=== PATIENT | male | born 1970 | race Caucasian/White ===

== ENCOUNTER 2017-06-18 05:35 | Observation (INO) ==
[2017-06-18] MEDS ORDERED: ASPIRIN 325 MG TABLET PO STA (05:51)
[2017-06-18] MEDS ORDERED: NITROGLYCERIN 2% OINT 1 INCH/GM PACK TOP STA (05:51)
[2017-06-18] MEDS ORDERED: MORPHINE 2 MG/1 ML SYRINGE IV STA (05:51)
[2017-06-18] MEDS ORDERED: METOPROLOL TARTRATE 5 MG/5 ML VIAL IV STA ×2 (05:51→07:06)
[2017-06-18] MEDS ORDERED: ALBUTEROL/IPRATROPIUM 3 ML NEB RESP TX STA (05:51)
[2017-06-18] MEDS ORDERED: ONDANSETRON 4 MG/2 ML VIAL IV STA (05:51)
[2017-06-18] MEDS ORDERED: FUROSEMIDE 40 MG/4 ML VIAL IV STA (05:51)
[2017-06-18] MEDS ORDERED: methylPREDNISolone SOD SUC 125 MG/2 ML VIAL IV STA (05:51)
--- NOTE | 2017-06-18 05:55 | Emergency Department Note ---
Arrival - Arrival Chief Complaint: Chest Pain Stated Complaint: heart attack ED Nursing Triage Note: C/O Chest pain/shortness of breath. Onset 3 weeks ago and worsened last night. Reports that he has taken 4 SL nitro since 2200 lastnight. Pt reports that he has had 2 MIs and CABG, was seeing Dr. Nunes until 2 years ago and now has an appointment with Dr. Jauregui whom he has not seen Mode of Arrival: Ambulatory Time Seen by Provider: 06/18/17 05:51 - History of Present Illness HPI Narrative: 47-year-old white male comes into the emergency room complaining of chest pain in center of his chest radiate down to his right arm. Patient states the pain started 3 weeks ago off and on worse with exertion somewhat better with rest. Patient gets short of breath breaks out in cold sweats no nausea vomiting though. Patient has a history of a open heart surgery several years ago Dr. Young stent placement. Patient admits she still smokes cigarettes. Patient states the pain became intolerable this morning has not been the bed at decided come the emergency room to have this checked out. Allergies/Adverse Reactions: Allergies Allergy/AdvReac Type Severity Reaction Status Date / Time No Known Allergies Allergy Unverified 08/02/15 14:18 Home Medications: Home Medications Medication Instructions Recorded Confirmed Type Albuterol Inhaler [Proventil 2 puff INH Q6H PRN 06/18/17 06/18/17 History Inhaler] Albuterol Sulfate [Albuterol Neb] 1.25 mg RESP TX Q6HR 06/18/17 06/18/17 History Carvedilol [Coreg] 6.25 mg PO BID 06/18/17 06/18/17 History Nitroglycerin Sl Tab [Nitrostat] 0.4 mg SL Q5M PRN 06/18/17 06/18/17 History Rosuvastatin Calcium [Crestor] 40 mg PO DAILY 06/18/17 06/18/17 History traMADol TAB [Ultram] 50 mg PO BID 06/18/17 06/18/17 History Review of System - Review of System 12 point system: reviewed and no additional remarkable complaints except as stated - Review of System Constitutional: Present: weakness Cardiovascular: Present: chest pain, dyspnea on exertion Musculoskeletal: Present: arm pain Medical,Surgical,& Family Hx - Medical History Cardio: History of: Hypertension, NM (x2) Endocrine: History of: Dyslipidemia Respiratory: History of: Asthma, COPD - Surgical History Cardiac Surgeries: Sugical HX of: Femoral-Popliteal Bypass Graft - Social History Smoking Status: Current every day smoker Frequency of Alcohol Use: None Type of Drug Use: None Exam Vital Signs: Vital Signs Temperature 98.2 F 06/18/17 16:18 Pulse Rate 82 06/18/17 16:18 Respiratory Rate 18 06/18/17 16:18 Blood Pressure 116/59 06/18/17 16:18 O2 Sat by Pulse Oximetry 91 L 06/18/17 16:18 - General Exam limited due to: level of distress (Mild distress) General appearance: alert - Head Head exam: Present: atraumatic, normocephalic, normal inspection - Eye Eye exam: Present: normal appearance, PERRL, EOMI - ENT ENT exam: Present: normal exam, normal oropharynx, mucous membranes moist - Neck Neck exam: Present: normal inspection, full ROM, trachea midline - Chest Chest inspection: Present: normal inspection, symmetric chest wall rise, other ( Scar in his chest from open heart surgery) - Respiratory Respiratory exam: Present: rales (Bibasilar faint), rhonchi, wheezes - Cardiovascular Cardiovascular exam: Present: regular rate, normal rhythm, normal heart sounds - Abdominal Exam Abdominal exam: Present: soft, normal bowel sounds - Extremities Exam Extremities exam: Present: normal inspection, full ROM, normal capillary refill - Back Exam Back exam: Present: normal inspection, full ROM - Neurological Exam Neurological exam: Present: alert, oriented X3, CN II-XII intact, normal gait - Psychiatric Psychiatric exam: Present: normal affect, normal mood - Skin Skin exam: Present: warm, dry, intact, normal color Course - Consultations Consultation #1: Signed out to Dr. Lebron ER doctor assuming care of this patient all labs and x-rays are still pending Time: 06:00 Results - Labs CBC & BMP: 06/18/17 05:50 06/18/17 05:50 Labs: EKG compared to one done in 2014 shows a changes. Patient has flipped T waves one lead of minimal ST elevation in aVR possible ST elevation in V1 V2 but no acute ST elevation criteria for Foreign Agent Disposition Clinical Impression: Exertional dyspnea, Chest pain, Unstable angina pectoris, Uncontrolled hypertension Case discussed with: patient, patient's family Disposition: Still a Patient Condition: Stable
[2017-06-18] MEDS ORDERED: FUROSEMIDE 40 MG/4 ML VIAL ONE (06:07)
[2017-06-18] MEDS ORDERED: ONDANSETRON 4 MG/2 ML VIAL ONE (06:07)
[2017-06-18] MEDS ORDERED: NITROGLYCERIN 2% OINT 1 INCH/GM PACK TOP ONE ×2 (06:07→06:43)
[2017-06-18] MEDS ORDERED: ASPIRIN 325 MG TABLET ONE (06:08)
[2017-06-18] MEDS ORDERED: MORPHINE 2 MG/1 ML SYRINGE ONE (06:08)
[2017-06-18] MEDS ORDERED: METOPROLOL TARTRATE 5 MG/5 ML VIAL IV ONE ×2 (06:08→07:08)
[2017-06-18] MEDS ORDERED: methylPREDNISolone SOD SUC 125 MG/2 ML VIAL ONE (06:08)
[2017-06-18 06:12] LABS: Basophils % 0.4 % (0.0-0.8); Eosinophils # 0.2 10*3/uL (0.0-0.87); Eosinophils % 2.5 % (0.00-10.9); Hematocrit 42.7 VOL% (42.0-52.0); Hemoglobin 14.5 GM/DL (14.0-18.0); Immature Granulocytes % 0.2 %; Immature Granulocytes Absolute 0.02 #; Lymphocytes # 3.8 10*3/uL (1.4-4.0); Lymphocytes % 40.2 % (21.2-54.2); Mean Corpuscular Hemoglobin 31 PG (27-34); Mean Corpuscular Volume 89.9 FL (87-102); Mean Platelet Volume 10.4 FL (9.6-12.0); Monocytes # 0.8 10*3/uL (0.11-0.8); Monocytes % 8.4 % (1.7-12.7); Neutrophils # 4.5 10*3/uL (1.4-7.4); Neutrophils % 48.3 % (38.7-73.9); Platelet Count 299 T/CUMM (130-400); Red Blood Count 4.75 MC/CUMM (3.8-5.5); Red Cell Distribution Width 12.3 % (9.3-17.3); White Blood Count 9.4 T/CUMM (4-12)
[2017-06-18 06:29] LABS: INR 0.9; PT Patient Result 9.9 SECS
[2017-06-18 06:45] LABS: Alanine Aminotransferase 17 U/L (16-61); Albumin 3.3 G/DL (3.4-5.0); Alkaline Phosphatase 117 U/L (45-117); Aspartate Amino Transferase 12 U/L (0-37); Bilirubin,Total < 0.39 MG/DL (0.2-1.0); Blood Urea Nitrogen 14 MG/DL (7-18); Calcium 8.3 MG/DL (8.5-10.1); Glucose 105 MG/DL (74-106); Magnesium 2.2 MG/DL (1.8-2.4); Osmolality,Calculated 281.3 MOS/KG (273-304); Potassium 3.8 MMOL/L (3.5-5.1); Sodium 141 MMOL/L (136-145)
[2017-06-18] MEDS ORDERED: MAGNESIUM SULF RIDER 4 GM in PREMIX 1 EACH IV PRN (06:52)
[2017-06-18] MEDS ORDERED: MAGNESIUM SULF RIDER 2 GM in PREMIX 1 EACH IV PRN ×2 (06:52→10:21)
[2017-06-18] MEDS ORDERED: ENOXAPARIN 80 MG/0.8 ML SYRINGE SUBCUT STA (07:06)
[2017-06-18] MEDS ORDERED: ENOXAPARIN 80 MG/0.8 ML SYRINGE SUBCUT ONE (07:08)
--- NOTE | 2017-06-18 07:56 | XRay Report ---
Exam: XR chest 1V portable Date: 06/18/2017 5:51 AM Indication: Chest pain Comparison: 12/06/2016 Technical: AP Findings: Cardiomegaly is present with previous sternotomy. ASVD is present. No obvious pneumothorax. Low volume left effusion is present. Mediastinum is intact. Minimal atelectatic change left upper chest without consolidations present Impression: 1. Cardiomegaly with mild cardiac decompensation suspected with low volume effusion and atelectatic change present left lung. PROCEDURE INTERPRETED AT [facility] DEPARTMENT OF RADIOLOGY Final Report Signed by: Dr. Junior Peterson
[2017-06-18] MEDS ORDERED: diphenhydrAMINE CAP 25 MG CAPSULE PO ONE (10:21)
[2017-06-18] MEDS ORDERED: POTASSIUM CHLORIDE RIDER 10 MEQ in PREMIX 1 EACH IV PRN (10:21)
[2017-06-18] MEDS ORDERED: DIAZEPAM 5 MG TABLET PO ONE (10:21)
[2017-06-18] MEDS ORDERED: ALBUTEROL 2.5 MG/3 ML NEB RESP TX PRN (10:23)
[2017-06-18] MEDS ORDERED: NITROGLYCERIN SL 0.4 MG TABLET SL PRN (10:23)
[2017-06-18] MEDS ORDERED: MORPHINE 2 MG/1 ML SYRINGE IV PRN (10:25)
[2017-06-18] MEDS ORDERED: ACETAMINOPHEN 500 MG TABLET PO PRN (10:26)
[2017-06-18] MEDS ORDERED: ZALEPLON 5 MG CAPSULE PO PRN (10:26)
[2017-06-18] MEDS ORDERED: ALUMINUM/MAGNES/SIMETH MAX STR 30 ML UDCUP PO PRN (10:26)
--- NOTE | 2017-06-18 10:27 | Cardiology History & Physical ---
Assessment and Plan - Time spent with patient Time spent with patient: Greater than 30 minutes Time spent discussing smoking cessation with patient: 3 to 10 minutes (1) Unstable angina pectoris Status: Acute Assessment and plan: This patient is having unstable angina symptomatology with trivial increased troponin but above 1 is previously been. His ECG shows changes consistent with ischemia. We will plan on carrying out cardiac catheterization as discussed above. Current Visit: Yes (2) COPD (chronic obstructive pulmonary disease) Status: Chronic Assessment and plan: This is a chronic issue secondary probably to his smoking history. Current Visit: Yes (3) Abdominal aortic aneurysm Status: Chronic Assessment and plan: Last measured branches were 3.7 cm. Clinically stable. Current Visit: Yes (4) Abnormal ECG Status: Acute Assessment and plan: This is somewhat chronic but has acute changes there is different than previous. Current Visit: Yes (5) Smoker Status: Chronic Assessment and plan: Continues to have significant smoking history. This needs to be changed as rehab will see him in this regard after his catheterization. Start nicotine patch. Current Visit: Yes (6) Exertional dyspnea Status: Chronic Assessment and plan: Prior related to COPD but this is not debilitating. This is probably beneficial to stop smoking. This may be also related to his coronary disease. Current Visit: Yes (7) Uncontrolled hypertension Status: Chronic Assessment and plan: Blood pressure too elevated may be associated with his chest pain. Certainly may be exacerbating his chest pain. Current Visit: Yes (8) Dyslipidemia Status: Acute Assessment and plan: We will continue his present statin drug and check his lipid profile. Current Visit: Yes History of Present Illness Chief complaint: Chest pain History of present illness: Mr. Frias is a 47 year old male who is present in the emergency room now with a 3-4 week history of having chest pain is been intermittent especially with exertion. With this to get more short of breath and feel weak. This now has progressed to where is more frequent and exacerbated by lower levels of activity. The patient is now having some chest pain at rest. Presents emergency room for evaluation because of persistent pain that would recur immediately after taking some nitroglycerin. It should be noted the similar question would seem to resolve the pain. His ECG reveals T-wave abnormalities that is diffuse especially in inferior lateral leads. This is a change from prior ECG. He does have left ventricular hypertrophy and intraventricular conduction delay that is minimal. The patient's admission troponin was 0.298 and decreased back down to 0.271. His BNP was 363. Patient had prior coronary bypass surgery with anterior microinfarction August 2008. His disease was not amenable to intervention at that time and underwent bypass surgery with COCHRAN to the LAD, SVG to circumflex artery SVG to RCA. His last seen by me on July 2015. Because the patient's anginal quality symptomatology and abnormal ECG which is progressive this patient needs to have cardiac catheterization for definitive diagnosis and possible intervention. I discussed cardiac catheterization with he and his family that is present and significant other. I discussed the case as well as the benefits and risk. I discussed cardiac catheterization and percutaneous coronary intervention with the patient and available family. I reviewed with them the indications for the procedure and the basis of how the procedure would be carried out. I also reviewed with them the risk of the procedure which include but not necessarily limited to access site bleeding, bruising, pain, swelling or vascular injury that may require emergency vascular surgery, blood transfusion, or thrombin injection. Also discussed the possibility of stroke, myocardial infarction, arrhythmia which may require electrocardioversion, and the possibility of dye reaction that would require medical therapy. Also discussed the possibility of coronary artery injury, ruptured, closure or perforation that may require emergency bypass surgery. We also discussed the possibility of from a major complication. They voice understanding and agree to proceed. We will plan on doing today. His medical history significant only for his coronary disease but also hypertension dyslipidemia and tobacco abuse. He has been told that he has COPD and emphysema as well as abdominal aortic aneurysm. He states his last measurement of his abdominal aortic aneurysm a few months ago was 3.7 cm. Home Medications Medication Instructions Recorded Confirmed Type Albuterol Inhaler [Proventil 2 puff INH Q6H PRN 06/18/17 06/18/17 History Inhaler] Albuterol Sulfate [Albuterol Neb] 1.25 mg RESP TX Q6HR 06/18/17 06/18/17 History Carvedilol [Coreg] 6.25 mg PO BID 06/18/17 06/18/17 History Nitroglycerin Sl Tab [Nitrostat] 0.4 mg SL Q5M PRN 06/18/17 06/18/17 History Rosuvastatin Calcium [Crestor] 40 mg PO DAILY 06/18/17 06/18/17 History traMADol TAB [Ultram] 50 mg PO BID 06/18/17 06/18/17 History Allergies Allergy/AdvReac Type Severity Reaction Status Date / Time No Known Allergies Allergy Unverified 08/02/15 14:18 Review of systems: Constitutional: Denies anorexia, chills, fatigue, fever, frequent falls, night sweats, weight gain, weight loss Eyes: Denies visual changes or loss of vision Ears: Denies decreased hearing, vertigo Nose, mouth and throat: Denies dysphagia, epistaxis, headaches, neck pain, tongue swelling, Neck: Denies thyromegaly or masses. No stiffness. Cardiovascular: as per HPI Respiratory: Denies cough, dyspnea, hemoptysis, dyspnea on exertion, wheezing, snoring Gastrointestinal: Denies abdominal pain, constipation, dyspepsia, dysphagia, hematemesis, hematochezia, melena, nausea, vomiting Genitourinary: Denies dysuria, hematuria, nocturia Musculoskeletal: Denies arthralgias, joint swelling, muscle weakness, myalgias Neurological: denies abnormal gait, abnormal speech, confusion, convulsions, frequent falls, headaches, memory loss, syncope Psychiatric: Denies anxiety, confusion, depression Endocrine: Denies cold intolerance, fatigue, heat intolerance Hematologic/Lymphatic: Denies easy bleeding, easy bruising Dermatologic: Denies Rash, itching, shingles Medical,Surgical,& Family Hx - Medical History Cardio: History of: Aneurysm (AAA 3.7cm), Hypertension, SD (x2) Endocrine: History of: Dyslipidemia Respiratory: History of: COPD No history of: Asthma - Surgical History Cardiac Surgeries: Sugical HX of: Femoral-Popliteal Bypass Graft, Cardiac Catheterization, Cardiac Surgery (CABG 2007) - Social History Smoking Status: Current every day smoker (Smokes up to a pack of cigarettes daily.) Have you smoked in the last 12 months: Yes Time spent discussing smoking cessation with patient: 3 to 10 minutes Frequency of Alcohol Use: None Type of Drug Use: None Marital Status: Life Partner Lives With:: Significant Other Functional capacity: independent ambulation Cardiology Physical Exam - Constitutional Vitals: Vital Signs Temp Pulse Resp BP Pulse Ox 99.4 F 79 18 164/111 99 06/18/17 08:28 06/18/17 08:28 06/18/17 08:28 06/18/17 08:28 06/18/17 08:28 Intake and Output 0906/18/17 06/18/17 23:59 07:59 15:59 Other: Weight 74.843 kg 102.058 kg Patient Weight 06/18/17 23:59 Weight 102.058 kg Exam: General appearance: normal weight, no acute distress Head exam: normal inspection, atraumatic Eye exam: Pupils are equal and reactive. EOMI. There is no trauma. Ear exam: Anatomically normal. Normal auditory acuity to conversation. Oral exam: No significant oral lesions. Neck exam: normal inspection no JVD. No carotid bruit. Trachea is in midline. Respiratory exam: clear to auscultation bilaterally posteriorly and anteriorly with good air movement. No rales, rhonchi or wheezes. Cardiovascular exam: regular rate and rhythm, no murmur or gallop or rub. No precordial lift. No bruits over the major arteries. Chest wall/torso: Anatomically normal. No tenderness, deformity. Midline sternotomy scar from prior CABG. Peripheral Pulses: 2+ throughout. GI/Abdominal exam: normal bowel sounds, soft and nontender, no abdominal bruits or pulsatile masses. Musculoskeletal/Extremities exam: normal inspection without edema or cyanosis. No deformities or trauma. Neurological exam: alert, oriented X3. There is no gross neurologic deficits. Psychiatric exam: normal affect, normal mood. Cognitive function is grossly intact. Skin exam: normal color, warm. No rashes or other skin lesions. Result/EKG - Labs CBC & BMP: 06/18/17 05:50 06/18/17 05:50 Lab Results: I have reviewed the past 24 hour labs Labs: Laboratory Results - last 24 hr 06/18/17 06/18/17 06/18/17 05:50 05:50 05:50 WBC RBC Hgb Hct MCV MCH MCHC RDW Plt Count MPV Neut % (Auto) Lymph % (Auto) Sabine % (Auto) Eos % (Auto) Baso % (Auto) Neut # (Auto) Lymph # (Auto) Sabine # (Auto) Eos # (Auto) Baso # (Auto) Immature Gran % Nucleated RBC % Immature Gran # Nucleated RBCs # Immature Plt Fraction INR 0.9 PT Patient/Control Mix 9.9 D-Dimer, Quantitative <= 0.5 Sodium 141 Potassium 3.8 Chloride 110 H Carbon Dioxide 25 Anion Gap 9.8 BUN 14 Creatinine 1.10 GFR Calculation 90 BUN/Creatinine Ratio 12.00 Glucose 105 Calculated Osmolality 281.3 Calcium 8.3 L Magnesium 2.2 Total Bilirubin < 0.39 AST 12 ALT 17 Alkaline Phosphatase 117 Troponin I B-Natriuretic Peptide 363 H Total Protein 7.0 Albumin 3.3 L Globulin 3.7 H Albumin/Globulin Ratio 0.8 L Lipase 218.0 06/18/17 06/18/17 06/18/17 05:50 05:50 08:36 WBC 9.4 RBC 4.75 Hgb 14.5 Hct 42.7 MCV 89.9 MCH 31 MCHC 34.0 RDW 12.3 Plt Count 299 MPV 10.4 Neut % (Auto) 48.3 Lymph % (Auto) 40.2 Sabine % (Auto) 8.4 Eos % (Auto) 2.5 Baso % (Auto) 0.4 Neut # (Auto) 4.5 Lymph # (Auto) 3.8 Sabine # (Auto) 0.8 Eos # (Auto) 0.2 Baso # (Auto) 0.0 Immature Gran % 0.2 Nucleated RBC % 0.0 Immature Gran # 0.02 Nucleated RBCs # 0.00 Immature Plt Fraction 0.0 INR PT Patient/Control Mix D-Dimer, Quantitative Sodium Potassium Chloride Carbon Dioxide Anion Gap BUN Creatinine GFR Calculation BUN/Creatinine Ratio Glucose Calculated Osmolality Calcium Magnesium Total Bilirubin AST ALT Alkaline Phosphatase Troponin I 0.298 H 0.271 H B-Natriuretic Peptide Total Protein Albumin Globulin Albumin/Globulin Ratio Lipase - Impressions Impressions: ECG with sinus rhythm and findings consistent left ventricular hypertrophy and possible ST tantamount secondary this. His T-wave changes though or recent onset and different than previous ECG within the past year. Certainly may indicate ischemia.
[2017-06-18] MEDS ORDERED: SODIUM CHLORIDE 0.9% 1,000 ML IV SCH ×2 (10:30→13:00)
[2017-06-18] MEDS ORDERED: MIDAZOLAM 2 MG/2 ML VIAL ONE ×3 (10:32→12:03)
[2017-06-18] MEDS ORDERED: fentaNYL 100 MCG/2 ML VIAL ONE ×2 (10:32→11:18)
[2017-06-18] MEDS ORDERED: LIDOCAINE 1% 20 ML VIAL ONE (10:32)
[2017-06-18] MEDS ORDERED: cloNIDine 0.1 MG TABLET PO PRN (10:35)
--- NOTE | 2017-06-18 10:43 | History and Physical Update ---
Sedation H&P Update - Dictation Physical: refer to H&P completed by admitting physician - Physical Exam Mental Status: alert and oriented Heart: regular rate and rhythm Lung: clear to auscultation Abdomen: within normal limits Vitals: within normal limits History and Physical Changes: None - Sedation Plan for Sedation: moderate Patient Consent: Procedure disscussed with patient and patinet has consented., Risks and benefits were discussed with patient,including infection,, bleeding, injury to surrounding structures, seizure, temporary nerve, Patient understands and accepts potential risks/benefits and agrees to, proceed. ASA Class: III Airway Assessment: Class III: Soft palate, base of uvula visible
[2017-06-18] MEDS ORDERED: TIROFIBAN 5,000 MCG/100 ML PREMIX IV ONE (11:39)
[2017-06-18] MEDS ORDERED: TIROFIBAN 5,000 MCG/100 ML PREMIX IV SCH (11:45)
[2017-06-18] MEDS ORDERED: TICAGRELOR 90 MG TABLET ONE (11:47)
[2017-06-18] MEDS ORDERED: diphenhydrAMINE 50 MG/1 ML VIAL ONE (12:03)
--- NOTE | 2017-06-18 12:39 | Operative Note ---
Date of procedure: 06/18/17 Procedure Preformed: Left heart catheterization with LV gram, coronary angiography, COCHRAN angiogram, assess vein graft angiogram 2; stent PTCA and stent placement in mid circumflex artery, PTCA and stent placement in RCA PL branch and distal RCA pre- PDA. Successful initial hemostasis. Surgeon / Physician: Saúl Nunes It Systems Manager: Chyna Llanos Post-op diagnosis: same (Successful intervention of the distal RCA and mid circumflex artery.) Findings: High-grade coronary artery disease multivessel. See full report for details. Specimens: none sent Estimated blood loss: minimal Condition: stable Anesthesia: local, conscious sedation Disposition: floor
[2017-06-18] MEDS ORDERED: HYDROmorphone 2 MG/1 ML VIAL ONE (12:53)
[2017-06-18] MEDS ORDERED: HYDROmorphone 2 MG/1 ML VIAL IV ONE (13:10)
[2017-06-18] MEDS: LOSARTAN 50 MG TABLET PO SCH (13:48)
[2017-06-18] MEDS: CARVEDILOL 12.5 MG TABLET PO SCH ×2 (13:48→20:24)
[2017-06-18] MEDS: NICOTINE 14 MG/24 HR PATCH TRANSDERM SCH (13:50)
[2017-06-18] MEDS: ALBUTEROL 1.25 MG/3 ML NEB RESP TX SCH ×2 (14:15→20:11)
[2017-06-18 14:43] LABS: Alanine Aminotransferase 18 U/L (16-61); Albumin 3.8 G/DL (3.4-5.0); Alkaline Phosphatase 122 U/L (45-117); Aspartate Amino Transferase 14 U/L (0-37); Bilirubin,Direct < 0.100 MG/DL (0.0-0.20); Bilirubin,Indirect 0.6 MG/DL (0.0-1.0); Total Protein 7.6 G/DL (6.4-8.3)
[2017-06-18] MEDS: traMADol 50 MG TABLET PO SCH (20:24)
[2017-06-18] MEDS ORDERED: CARVEDILOL 6.25 MG TABLET PO SCH (21:00)
[2017-06-18] MEDS ORDERED: ROSUVASTATIN 20 MG TABLET PO SCH (21:00)
[2017-06-19] MEDS: ALBUTEROL 1.25 MG/3 ML NEB RESP TX SCH ×3 (01:01→12:55)
[2017-06-19 06:27] LABS: Basophils % 0.2 % (0.0-0.8); Hematocrit 39.4 VOL% (42.0-52.0); Hemoglobin 13.4 GM/DL (14.0-18.0); Immature Granulocytes % 0.4 %; Immature Granulocytes Absolute 0.07 #; Lymphocytes # 1.8 10*3/uL (1.4-4.0); Lymphocytes % 9.1 % (21.2-54.2); Mean Corpuscular Hemoglobin 31 PG (27-34); Mean Corpuscular Volume 90.2 FL (87-102); Mean Platelet Volume 11.2 FL (9.6-12.0); Monocytes # 0.8 10*3/uL (0.11-0.8); Neutrophils # 17.2 10*3/uL (1.4-7.4); Neutrophils % 86.3 % (38.7-73.9); Platelet Count 316 T/CUMM (130-400); Red Blood Count 4.37 MC/CUMM (3.8-5.5); Red Cell Distribution Width 12.4 % (9.3-17.3); White Blood Count 19.9 T/CUMM (4-12)
[2017-06-19 06:59] LABS: Risk Ratio 4.45; VLDL CHOLESTEROL 40.2 MG/DL
[2017-06-19 07:03] LABS: Lymphocytes 8 % (20-55); Platelet Estimate Normal; Segmented Neutrophils 87 % (50-85); Total Cells Counted 100
[2017-06-19 07:04] LABS: Polychromasia Few
[2017-06-19 07:05] LABS: Blood Urea Nitrogen 23 MG/DL (7-18); Calcium 8.5 MG/DL (8.5-10.1); Glucose 152 MG/DL (74-106); Magnesium 1.9 MG/DL (1.8-2.4); Osmolality,Calculated 285.4 MOS/KG (273-304); Sodium 140 MMOL/L (136-145)
--- NOTE | 2017-06-19 07:14 | Order Completion Report ---
See report scanned to EMR
[2017-06-19 07:21] LABS: Troponin I Only 0.797 NG/ML (0.00-0.045)
[2017-06-19] MEDS: CARVEDILOL 12.5 MG TABLET PO SCH (08:35)
[2017-06-19] MEDS: traMADol 50 MG TABLET PO SCH (08:35)
[2017-06-19] MEDS: LOSARTAN 50 MG TABLET PO SCH (08:36)
[2017-06-19] MEDS ORDERED: PANTOPRAZOLE 40 MG TABLET PO SCH (09:00)
[2017-06-19] MEDS ORDERED: TICAGRELOR 90 MG TABLET PO SCH (09:00)
[2017-06-19] MEDS ORDERED: ASPIRIN EC 81 MG TABLET PO SCH (09:00)
[2017-06-19] MEDS ORDERED: ROSUVASTATIN 20 MG TABLET PO SCH (09:00)
[2017-06-19] MEDS: NICOTINE 14 MG/24 HR PATCH TRANSDERM SCH (09:48)
[2017-06-19] MEDS ORDERED: MAGNESIUM SULF RIDER 2 GM in PREMIX 1 EACH IV PRN (10:50)
[2017-06-19] MEDS ORDERED: MAGNESIUM SULF RIDER 4 GM in PREMIX 1 EACH IV PRN (10:50)
[2017-06-19 11:49] LABS: Free T4 (Free Thyroxine) 0.85 NG/DL (0.76-1.46); Thyroid Stimulating Hormone 0.163 uIU/ml (0.358-3.74)
--- NOTE | 2017-06-19 12:14 | Discharge Summary ---
<Brandy Garcia E - Last Filed: 06/19/17 12:00> Hospital Course - Hospital Course Hospital Course: PROPERTY ADJUSTER: DR. ARENAS PRIMARY CARE PROVIDER: DR. LORENZO Mr. Frias is a 47 year old male who is presented to the emergency room June 18, 2017 with intermittent chest pain. Troponin was minimally elevated but EKG revealed T-wave abnormalities in the inferolateral leads. He was taken to the cardiac catheterization lab where Dr. Arenas performed heart catheterization with the following noted: Required PCI to the distal RCA, PCI to mid circumflex. EF 35-40%. See cardiac catheterization report for additional information. He tolerated the procedure well without complication and was returned to telemetry unit in stable condition. Overnight, he has done well without chest pain, heaviness or tightness. He has been ambulating in the hallway all morning without complaints. WBC count did increase overnight to 19K however I suspect this is related to receiving IV steroids. He is afebrile. (Patient had prior coronary bypass surgery with anterior microinfarction August 2008. His disease was not amenable to intervention at that time and underwent bypass surgery with COCHRAN to the LAD, SVG to circumflex artery SVG to RCA.) Patient is being discharged home in stable condition. He sees Dr. Lorenzo [place], [place] for primary care needs. Will verify that Gets a copy of this record. Of note, patient had a 3.7 cm abdominal aortic aneurysm in the past and this is followed by Dr. Lorenzo. Patient be given a 2-3 week follow-up appoint with Dr. Arenas. At that visit the following will be obtained: BMP, magnesium, CBC, EKG. Patient may benefit from an outpatient echocardiogram and I will schedule this to be performed the week prior to seeing Dr. Arenas (reason: Cardiomyopathy). Greater than 5 minutes was spent today discussing the merits of tobacco cessation. I did spend 30 minutes today discussing post cath expectations with patient and his . I also discussed the natural progression of coronary artery disease in need for continued, relentless management of his severe CAD. I also discussed the importance of medication compliance. Patient did receive counseling from cardiac rehabilitation prior to discharge. Discharge medications include the following: Aspirin 81 mg orally daily Brilinta 90 mg orally twice daily. Patient is being given a prescription card at discharge Carvedilol 12.5 mg orally twice daily Losartan 50 mg orally daily Crestor 40 mg orally each evening Lasix 20 mg orally daily as needed for weight gain greater than 3 pounds overnight. Patient personally reviewed and examined today. Chart was reviewed and discussed this with Brandy Garcia NP. The patient is doing well post interventions had no further chest pain he feels better. Patient's right groin is stable. His exam is stable. Patient be discharged to follow-up in 2 weeks. I discussed with he and his family his risk factor modifications and care. Cardiac rehab would be an consulted. My concern is his risk factors especially smoking. We have discussed medications with the patient. Home today. - Time spent with patient Time with patient DS: Greater than 30 minutes Time spent discussing smoking cessation with patient: 3 to 10 minutes Diagnosis - Discharge Diagnosis (1) Non-STEMI (non-ST elevated myocardial infarction) Status: Acute (2) Hypertension Status: Chronic (3) COPD (chronic obstructive pulmonary disease) Status: Chronic (4) Smoker Status: Chronic (5) Dyslipidemia Status: Chronic Specialty Discharge - Follow Up or Referrals Follow up with: Saúl Arenas MD [Primary Care Provider] - 07/08/17 1:40 pm (July 01 at 9:40 AM - lab work, EKG, and echocardiogram at Dr. Arenas's office. July 08 at 1:40 PM - appointment with Dr. Arenas. 2-3 weeks. At that visit will need: EKG, BMP, Mg, CBC. One week prior to appointment will need echo RE: cardiomyopathy.) Discharge Plan - Discharge Data Disposition: Disch To Home/Self Care Condition at Discharge: Stable Discharge Diet: heart healthy Activity: other (Post cath expectations) Hygiene: other (Post cath expectations) Weight Bearing at Discharge: other (Post cath expectations) Driving: other (Post cath expectations) Contact your physician if you experience:: fever over 101, Difficulty voiding, Redness or swelling, Nausea/Vomiting, Shortness of breath, Bleeding, pain uncontrolled by pain medications - Discharge Medications New Aspirin EC Tab 81 mg PO DAILY #30 tablet Carvedilol [Coreg] 12.5 mg PO BID #60 tablet Furosemide Tab [Lasix Tab] 20 mg PO PRN PRN #30 tablet PRN Reason: weight gain Ticagrelor [Brilinta] 90 mg PO BID #60 tablet Losartan [Cozaar] 50 mg PO DAILY #30 tablet Continue Albuterol Inhaler [Proventil Inhaler] 2 puff INH Q6H PRN PRN Reason: Shortness Of Breath/Wheezing Nitroglycerin Sl Tab [Nitrostat] 0.4 mg SL Q5M PRN PRN Reason: Chest Pain Albuterol Sulfate [Albuterol Neb] 1.25 mg RESP TX Q6HR traMADol TAB [Ultram] 50 mg PO BID Rosuvastatin Calcium [Crestor] 40 mg PO DAILY Discontinued Carvedilol [Coreg] 6.25 mg PO BID - Follow Up or Referral Follow Up: Saúl Arenas MD [Primary Care Provider] - 07/08/17 1:40 pm (July 01 at 9:40 AM - lab work, EKG, and echocardiogram at Dr. Arenas's office. July 08 at 1:40 PM - appointment with Dr. Arenas. 2-3 weeks. At that visit will need: EKG, BMP, Mg, CBC. One week prior to appointment will need echo RE: cardiomyopathy.) - Forms/Instructions Instructions: Left Heart Catheterization (DC), How to Stop Smoking (GEN), Heart Healthy Diet (DC), Cigarette Smoking and Your Health (GEN), Coronary Intravascular Stent Placement, Manager Of Program (GEN) Additional Discharge Instructions: Please have patient follow-up with Dr. Lorenzo , primary care provider, for continued following of his history of abdominal aortic aneurysm. Please ask medical records to [address] Lorenzo in [place], [place] a copy of these records and to add him to the options for cc at discharge. Also, please give patient Brilinta prescription card at discharge. Dr. Arenas would like to see patient prior to discharge. Dr. Arenas is rounding now. Exam - Constitutional Vitals: Period Temp Pulse Resp BP Sys/Hart Pulse Ox Last 24 Hr 97.6 F-98.8 F 48-102 18-20 116-150/59-85 91-100 Exam: General: [Appears well with no apparent distress.] [Pleasant and cooperative. ] [Appears comfortable.] HEENT: [PERRL, normocephalic, atraumatic. Mucous membranes moist. No jaundice noted. Conjunctiva moist and clear, sclerae anicteric] Neck: No JVD/HJR, no thyromegaly or lymphadenopathy noted. No carotid bruit appreciated Cardiac: [Regular rate and rhythm.] [No murmur, rub or gallop.] Lungs: [Clear to auscultation without accessory muscle use to assist the respiratory pattern.] Not requiring oxygen Abdomen: Soft, bowel sounds normoactive. Nontender and nondistended. No abdominal bruit or thrill noted. No masses noted. Musculoskeletal: No fluid collection. Decreased range of motion is noted. Extremities: Right groin soft, free of hematoma or bruit. No clubbing, cyanosis noted. [ No edema noted.] Upper extremity pulses 2+. Lower extremity pulses 2+. Capillary refill less than 3 seconds. Skin: No unusual lesions or rashes. No skin breakdown appreciated. Neuro: Awake, alert and oriented 3. Moves all extremities well without hemiparesis or paralysis. No essential tremor is appreciated. Discharge Results Labs on day of discharge: Labs from last 24 hours 06/19/17 06/19/17 06/19/17 04:16 04:16 04:16 WBC 19.9 H D RBC 4.37 Hgb 13.4 L Hct 39.4 L MCV 90.2 MCH 31 MCHC 34.0 RDW 12.4 Plt Count 316 MPV 11.2 Neut % (Auto) 86.3 H Lymph % (Auto) 9.1 L Hancock % (Auto) 4.0 Eos % (Auto) 0.0 Baso % (Auto) 0.2 Neut # (Auto) 17.2 H Lymph # (Auto) 1.8 Hancock # (Auto) 0.8 Eos # (Auto) 0.0 Baso # (Auto) 0.0 Total Counted 100 Immature Gran % 0.4 Nucleated RBC % 0.0 Immature Gran # 0.07 Segmented Neutrophils 87 H Lymphocytes 8 L Monocytes 5 Nucleated RBCs # 0.00 Platelet Estimate Normal Immature Plt Fraction 0.0 Polychromasia Few Sodium 140 Potassium 4.0 Chloride 107 Carbon Dioxide 23 Anion Gap 14.0 BUN 23 H Creatinine 1.30 GFR Calculation 86 BUN/Creatinine Ratio 17.00 Glucose 152 H Calculated Osmolality 285.4 Calcium 8.5 Magnesium 1.9 Total Creatine Kinase 57 CK-MB (CK-2) 4.8 H Troponin I 0.797 H D Triglycerides 201 H Cholesterol 196 LDL Cholesterol 132.0 VLDL Cholesterol 40.2 HDL Cholesterol 44 Heart Disease Risk Ratio 4.45 Free T4 TSH 3rd Generation 06/19/17 04:14 WBC RBC Hgb Hct MCV MCH MCHC RDW Plt Count MPV Neut % (Auto) Lymph % (Auto) Hancock % (Auto) Eos % (Auto) Baso % (Auto) Neut # (Auto) Lymph # (Auto) Hancock # (Auto) Eos # (Auto) Baso # (Auto) Total Counted Immature Gran % Nucleated RBC % Immature Gran # Segmented Neutrophils Lymphocytes Monocytes Nucleated RBCs # Platelet Estimate Immature Plt Fraction Polychromasia Sodium Potassium Chloride Carbon Dioxide Anion Gap BUN Creatinine GFR Calculation BUN/Creatinine Ratio Glucose Calculated Osmolality Calcium Magnesium Total Creatine Kinase CK-MB (CK-2) Troponin I Triglycerides Cholesterol LDL Cholesterol VLDL Cholesterol HDL Cholesterol Heart Disease Risk Ratio Free T4 0.85 TSH 3rd Generation 0.163 L - Imaging and Cardiology Cardiology Procedure: report reviewed by me Procedure: Chest x-ray: report reviewed by me DS: Provider Date of admission: 06/18/17 06:50 Primary care physician: Saúl Arenas MD Attending physician on admission: Christophe Forrest MD Consults: 06/18/17 12:41 Consult to Cardiac Rehabilitation [CONS] Routine Reason for Cardiac Rehabilitation: Risk Factor Modification Other Smoking Cessation Literacy Consultant Consult Comment: Evaluate and recommend Discharging clinician: Brandy Garcia NP Expected date of discharge: 06/19/17 <Saúl Arenas - Last Filed: 06/19/17 14:54> Diagnosis - Discharge Diagnosis (1) Unstable angina pectoris Status: Acute (2) COPD (chronic obstructive pulmonary disease) Status: Chronic (3) Abdominal aortic aneurysm Status: Chronic (4) Abnormal ECG Status: Acute (5) Smoker Status: Chronic (6) Exertional dyspnea Status: Chronic (7) Uncontrolled hypertension Status: Chronic (8) Dyslipidemia Status: Chronic
[2017-06-19] MEDS ORDERED: FUROSEMIDE 20 MG TABLET PO PRN (12:15)
[2017-06-19 12:21] VITALS: BP 149/85
[2017-06-19] MEDS ORDERED: ATORVASTATIN 80 MG TABLET PO SCH (21:00)
--- NOTE | 2017-06-23 05:27 | Order Completion Report ---
See report scanned to EMR
--- NOTE | 2017-06-23 05:27 | Order Completion Report ---
See report scanned to EMR
== END 2017-06-19 13:50 | disposition home or self-care (01) ==
LOC: N.EDINP 05:35 → N.ED 05:35 → N.EDINP 08:21 → N.TELES 08:24
PROVIDERS: ADMIT Internal Medicine Cardiovascular Disease; ATTEND Internal Medicine Cardiovascular Disease

== ENCOUNTER 2019-03-02 15:50 | Observation (INO) ==
[2019-03-02 16:39] LABS: Basophils # 0.1 10*3/uL (0.0-0.2); Basophils % 0.6 % (0.0-0.8); Eosinophils # 0.2 10*3/uL (0.0-0.87); Eosinophils % 1.8 % (0.00-10.9); Hematocrit 48.6 VOL% (42.0-52.0); Hemoglobin 15.9 GM/DL (14.0-18.0); Immature Granulocytes % 0.6 %; Immature Granulocytes Absolute 0.05 #; Lymphocytes # 2.9 10*3/uL (1.4-4.0); Lymphocytes % 33.1 % (21.2-54.2); Mean Corpuscular HGB Conc 32.7 GM/DL (32-36); Mean Corpuscular Volume 91.4 FL (87-102); Mean Platelet Volume 9.8 FL (9.6-12.0); Monocytes % 7.9 % (1.7-12.7); Platelet Count 359 T/CUMM (130-400); Red Blood Count 5.32 MC/CUMM (3.8-5.5); Red Cell Distribution Width 12.5 % (9.3-17.3); White Blood Count 8.7 T/CUMM (4-12)
[2019-03-02 16:46] LABS: INR 0.9; PT Patient Result 9.7 SECS
[2019-03-02] MEDS ORDERED: ENOXAPARIN 100 MG/ML SYRINGE SUBCUT STA (16:52)
[2019-03-02] MEDS ORDERED: ASPIRIN 325 MG TABLET PO STA (16:52)
[2019-03-02 17:01] LABS: Alanine Aminotransferase 20 U/L (16-61); Albumin 3.5 G/DL (3.4-5.0); Alkaline Phosphatase 121 U/L (45-117); Aspartate Amino Transferase 14 U/L (0-37); Blood Urea Nitrogen 14 MG/DL (7-18); Calcium 8.9 MG/DL (8.5-10.1); Glucose 106 MG/DL (74-106); Total Protein 7.9 G/DL (6.4-8.3); Troponin I 0.023 NG/ML (0.00-0.045)
[2019-03-02] MEDS ORDERED: amLODIPine 5 MG TABLET PO STA (17:51)
[2019-03-02] MEDS ORDERED: NITROGLYCERIN 2% OINT 1 INCH/GM PACK TOP STA (17:51)
[2019-03-02] MEDS ORDERED: MORPHINE 4 MG/1 ML VIAL IV PRN (18:45)
[2019-03-02] MEDS ORDERED: ONDANSETRON 4 MG/2 ML VIAL IV PRN (18:45)
[2019-03-02] MEDS ORDERED: ACETAMINOPHEN 325 MG TABLET PO PRN (18:45)
[2019-03-02] MEDS ORDERED: hydrALAZINE 20 MG/1 ML VIAL IV PRN (18:51)
[2019-03-02] MEDS ORDERED: ALBUTEROL 1.25 MG/3 ML NEB RESP TX PRN (18:56)
[2019-03-02] MEDS: traMADol 50 MG TABLET PO PRN (22:42)
[2019-03-02] MEDS: TICAGRELOR 90 MG TABLET PO SCH (22:42)
[2019-03-02] MEDS: CARVEDILOL 25 MG TABLET PO SCH (22:42)
[2019-03-03] MEDS: NITROGLYCERIN 2% OINT 1 INCH/GM PACK TOP SCH ×3 (02:25→12:31)
[2019-03-03 04:48] LABS: Basophils # 0.1 10*3/uL (0.0-0.2); Basophils % 0.6 % (0.0-0.8); Eosinophils # 0.3 10*3/uL (0.0-0.87); Eosinophils % 2.8 % (0.00-10.9); Hematocrit 46.1 VOL% (42.0-52.0); Hemoglobin 14.8 GM/DL (14.0-18.0); Immature Granulocytes % 0.7 %; Immature Granulocytes Absolute 0.07 #; Lymphocytes # 4.6 10*3/uL (1.4-4.0); Mean Corpuscular HGB Conc 32.1 GM/DL (32-36); Mean Corpuscular Volume 92.4 FL (87-102); Mean Platelet Volume 10.1 FL (9.6-12.0); Monocytes % 9.1 % (1.7-12.7); Neutrophils % 42.8 % (38.7-73.9); Platelet Count 330 T/CUMM (130-400); Red Blood Count 4.99 MC/CUMM (3.8-5.5); Red Cell Distribution Width 12.4 % (9.3-17.3); White Blood Count 10.4 T/CUMM (4-12)
[2019-03-03 05:32] LABS: Calcium 8.9 MG/DL (8.5-10.1); Osmolality,Calculated 277.5 MOS/KG (273-304); Risk Ratio 8.82; Thyroid Stimulating Hormone 1.84 uIU/ml (0.358-3.74); VLDL CHOLESTEROL 87.2 MG/DL
[2019-03-03] MEDS: PANTOPRAZOLE 40 MG TABLET PO SCH (09:06)
[2019-03-03] MEDS: ROSUVASTATIN 20 MG TABLET PO SCH (09:06)
[2019-03-03] MEDS: CARVEDILOL 25 MG TABLET PO SCH ×2 (09:06→21:23)
[2019-03-03] MEDS: LISINOPRIL 20 MG TABLET PO SCH (09:06)
[2019-03-03] MEDS: ASPIRIN EC 81 MG TABLET PO SCH (09:06)
[2019-03-03] MEDS: TICAGRELOR 90 MG TABLET PO SCH ×2 (09:07→21:23)
[2019-03-03] MEDS: NICOTINE 7 MG/24 HR PATCH TRANSDERM SCH (09:10)
[2019-03-03] MEDS ORDERED: POTASSIUM CHLORIDE RIDER 10 MEQ in PREMIX 1 EACH IV PRN (14:58)
[2019-03-03] MEDS ORDERED: MAGNESIUM SULF RIDER 2 GM in PREMIX 1 EACH IV PRN (14:58)
[2019-03-03] MEDS: ALBUTEROL 2.5 MG/3 ML NEB RESP TX PRN (17:12)
[2019-03-03] MEDS: CLORAZEPATE 3.75 MG TABLET PO PRN (18:05)
[2019-03-03] MEDS: ENOXAPARIN 40 MG/0.4 ML SYRINGE SUBCUT SCH (18:05)
[2019-03-04] MEDS: CLORAZEPATE 3.75 MG TABLET PO PRN ×3 (00:39→22:00)
[2019-03-04] MEDS: traMADol 50 MG TABLET PO PRN ×3 (01:20→22:00)
[2019-03-04 04:42] LABS: Basophils # 0.1 10*3/uL (0.0-0.2); Basophils % 0.6 % (0.0-0.8); Eosinophils # 0.3 10*3/uL (0.0-0.87); Eosinophils % 3.1 % (0.00-10.9); Hematocrit 45.1 VOL% (42.0-52.0); Hemoglobin 14.6 GM/DL (14.0-18.0); Immature Granulocytes % 0.5 %; Immature Granulocytes Absolute 0.04 #; Lymphocytes # 3.8 10*3/uL (1.4-4.0); Lymphocytes % 45.5 % (21.2-54.2); Mean Corpuscular HGB Conc 32.4 GM/DL (32-36); Mean Platelet Volume 10.3 FL (9.6-12.0); Neutrophils % 43.3 % (38.7-73.9); Platelet Count 313 T/CUMM (130-400); Red Blood Count 4.85 MC/CUMM (3.8-5.5); Red Cell Distribution Width 12.5 % (9.3-17.3); White Blood Count 8.4 T/CUMM (4-12)
[2019-03-04 05:12] LABS: Calcium 8.7 MG/DL (8.5-10.1); Osmolality,Calculated 285.3 MOS/KG (273-304)
[2019-03-04] MEDS: NICOTINE 7 MG/24 HR PATCH TRANSDERM SCH (11:48)
[2019-03-04] MEDS ORDERED: DIAZEPAM 5 MG TABLET PO ONE (12:00)
[2019-03-04] MEDS ORDERED: diphenhydrAMINE CAP 25 MG CAPSULE PO ONE (12:00)
[2019-03-04] MEDS: ALBUTEROL 2.5 MG/3 ML NEB RESP TX PRN (12:15)
[2019-03-04] MEDS: ENOXAPARIN 40 MG/0.4 ML SYRINGE SUBCUT SCH ×2 (12:35→18:23)
[2019-03-04] MEDS: ASPIRIN EC 81 MG TABLET PO SCH (12:36)
[2019-03-04] MEDS: LISINOPRIL 20 MG TABLET PO SCH (12:36)
[2019-03-04] MEDS: ROSUVASTATIN 20 MG TABLET PO SCH (12:36)
[2019-03-04] MEDS: TICAGRELOR 90 MG TABLET PO SCH ×2 (12:37→22:01)
[2019-03-04] MEDS: CARVEDILOL 25 MG TABLET PO SCH (12:37)
[2019-03-04] MEDS: PANTOPRAZOLE 40 MG TABLET PO SCH (12:37)
[2019-03-04] MEDS ORDERED: fentaNYL 100 MCG/2 ML VIAL ONE (13:15)
[2019-03-04] MEDS ORDERED: MIDAZOLAM 2 MG/2 ML VIAL ONE (13:15)
[2019-03-04] MEDS ORDERED: SODIUM CHLORIDE 0.9% 1,000 ML IV SCH (14:30)
[2019-03-05] MEDS: CARVEDILOL 25 MG TABLET PO SCH ×2 (01:39→09:17)
[2019-03-05 06:23] LABS: Basophils % 0.5 % (0.0-0.8); Eosinophils # 0.3 10*3/uL (0.0-0.87); Eosinophils % 3.2 % (0.00-10.9); Hematocrit 42.6 VOL% (42.0-52.0); Hemoglobin 13.4 GM/DL (14.0-18.0); Immature Granulocytes % 0.5 %; Immature Granulocytes Absolute 0.04 #; Lymphocytes # 2.8 10*3/uL (1.4-4.0); Lymphocytes % 33.9 % (21.2-54.2); Mean Corpuscular HGB Conc 31.5 GM/DL (32-36); Mean Corpuscular Volume 94.7 FL (87-102); Mean Platelet Volume 10.3 FL (9.6-12.0); Monocytes % 7.4 % (1.7-12.7); Neutrophils % 54.5 % (38.7-73.9); Platelet Count 295 T/CUMM (130-400); Red Cell Distribution Width 12.6 % (9.3-17.3); White Blood Count 8.3 T/CUMM (4-12)
[2019-03-05 06:50] LABS: Calcium 8.3 MG/DL (8.5-10.1); Osmolality,Calculated 282.5 MOS/KG (273-304)
[2019-03-05 08:06] VITALS: BP 142/89
[2019-03-05] MEDS: ROSUVASTATIN 20 MG TABLET PO SCH (09:16)
[2019-03-05] MEDS: TICAGRELOR 90 MG TABLET PO SCH (09:17)
[2019-03-05] MEDS: PANTOPRAZOLE 40 MG TABLET PO SCH (09:17)
[2019-03-05] MEDS: ASPIRIN EC 81 MG TABLET PO SCH (09:17)
[2019-03-05] MEDS: LISINOPRIL 20 MG TABLET PO SCH (09:17)
[2019-03-05] MEDS: NICOTINE 7 MG/24 HR PATCH TRANSDERM SCH (09:17)
[2019-03-05] MEDS: traMADol 50 MG TABLET PO PRN (09:24)
== END 2019-03-05 11:35 | disposition home or self-care (01) ==
LOC: N.EDINP 15:50 → N.ED 15:50 → SUATTDRO 18:45 → N.TELES 20:08
PROVIDERS: ADMIT Internal Medicine; ATTEND Internal Medicine Interventional Cardiology

== ENCOUNTER 2019-05-24 20:39 | Inpatient (IN) ==
[2019-05-24 22:34] LABS: Basophils % 0.5 % (0.0-0.8); Eosinophils # 0.2 10*3/uL (0.0-0.87); Eosinophils % 2.8 % (0.00-10.9); Hematocrit 41.3 VOL% (42.0-52.0); Hemoglobin 13.6 GM/DL (14.0-18.0); Immature Granulocytes % 0.2 %; Immature Granulocytes Absolute 0.02 #; Lymphocytes # 2.3 10*3/uL (1.4-4.0); Lymphocytes % 28.3 % (21.2-54.2); Mean Corpuscular HGB Conc 32.9 GM/DL (32-36); Mean Platelet Volume 10.7 FL (9.6-12.0); Monocytes % 6.7 % (1.7-12.7); Neutrophils % 61.5 % (38.7-73.9); Platelet Count 299 T/CUMM (130-400); Red Blood Count 4.44 MC/CUMM (3.8-5.5); Red Cell Distribution Width 12.4 % (9.3-17.3); White Blood Count 8.1 T/CUMM (4-12)
[2019-05-24 22:52] LABS: Alanine Aminotransferase 15 U/L (16-61); Albumin 3.4 G/DL (3.4-5.0); Alkaline Phosphatase 101 U/L (45-117); Aspartate Amino Transferase 20 U/L (0-37); Bilirubin,Total < 0.39 MG/DL (0.2-1.0); Blood Urea Nitrogen 24 MG/DL (7-18); Calcium 9.1 MG/DL (8.5-10.1); Glucose 99 MG/DL (74-106); Osmolality,Calculated 286.1 MOS/KG (273-304); Total Protein 7.5 G/DL (6.4-8.3)
[2019-05-24] MEDS ORDERED: ENOXAPARIN 80 MG/0.8 ML SYRINGE SUBCUT STA (23:02)
[2019-05-24] MEDS ORDERED: ENOXAPARIN 100 MG/ML SYRINGE SUBCUT ONE (23:15)
[2019-05-24] MEDS ORDERED: CLOPIDOGREL 75 MG TABLET PO STA (23:16)
[2019-05-25] MEDS ORDERED: ACETAMINOPHEN 325 MG TABLET PO PRN (00:06)
[2019-05-25] MEDS ORDERED: ONDANSETRON 4 MG/2 ML VIAL IV PRN (00:06)
[2019-05-25] MEDS ORDERED: POTASSIUM CHLORIDE 20 MEQ TABLET PO PRN (00:06)
[2019-05-25] MEDS ORDERED: NITROGLYCERIN SL 0.4 MG TABLET SL PRN (00:06)
[2019-05-25] MEDS ORDERED: MAGNESIUM SULF RIDER 2 GM in PREMIX 1 EACH IV PRN ×2 (00:06→08:34)
[2019-05-25] MEDS ORDERED: NITROGLYCERIN 2% OINT 1 INCH/GM PACK TOP STA (04:00)
[2019-05-25 04:01] LABS: Basophils % 0.3 % (0.0-0.8); Eosinophils # 0.2 10*3/uL (0.0-0.87); Eosinophils % 3.3 % (0.00-10.9); Hematocrit 40.1 VOL% (42.0-52.0); Hemoglobin 13.5 GM/DL (14.0-18.0); Immature Granulocytes % 0.3 %; Immature Granulocytes Absolute 0.02 #; Lymphocytes # 3.5 10*3/uL (1.4-4.0); Lymphocytes % 47.1 % (21.2-54.2); Mean Corpuscular HGB Conc 33.7 GM/DL (32-36); Mean Corpuscular Volume 92.2 FL (87-102); Mean Platelet Volume 10.6 FL (9.6-12.0); Monocytes % 8.3 % (1.7-12.7); Neutrophils % 40.7 % (38.7-73.9); Platelet Count 277 T/CUMM (130-400); Red Blood Count 4.35 MC/CUMM (3.8-5.5); Red Cell Distribution Width 12.4 % (9.3-17.3); White Blood Count 7.4 T/CUMM (4-12)
[2019-05-25] MEDS ORDERED: NITROGLYCERIN 2% OINT 1 INCH/GM PACK TOP ONE (04:07)
[2019-05-25 04:22] LABS: Alanine Aminotransferase 18 U/L (16-61); Albumin 3.1 G/DL (3.4-5.0); Alkaline Phosphatase 100 U/L (45-117); Aspartate Amino Transferase 20 U/L (0-37); Bilirubin,Total < 0.39 MG/DL (0.2-1.0); Blood Urea Nitrogen 24 MG/DL (7-18); Calcium 8.5 MG/DL (8.5-10.1); Glucose 105 MG/DL (74-106); Osmolality,Calculated 284.3 MOS/KG (273-304)
[2019-05-25] MEDS ORDERED: NITROGLYCERIN 2% OINT 1 INCH/GM PACK TOP SCH (06:00)
[2019-05-25] MEDS ORDERED: POTASSIUM CHLORIDE RIDER 10 MEQ in PREMIX 1 EACH IV PRN (08:34)
[2019-05-25] MEDS ORDERED: diphenhydrAMINE CAP 25 MG CAPSULE PO ONE (08:34)
[2019-05-25] MEDS ORDERED: DIAZEPAM 5 MG TABLET PO ONE (08:34)
[2019-05-25] MEDS ORDERED: LIDOCAINE 1%/EPI INJ 20 ML VIAL ONE (08:43)
[2019-05-25] MEDS ORDERED: HEPARIN/NACL 0.9% 2 UNITS/ML 1,000 ML IV ONE (08:43)
[2019-05-25] MEDS: ASPIRIN EC 81 MG TABLET PO SCH (08:52)
[2019-05-25] MEDS: hydroCHLOROthiazide 25 MG TABLET PO SCH (08:52)
[2019-05-25] MEDS: ROSUVASTATIN 20 MG TABLET PO SCH (08:53)
[2019-05-25] MEDS: CARVEDILOL 25 MG TABLET PO SCH ×2 (08:53→21:33)
[2019-05-25] MEDS: PANTOPRAZOLE 40 MG TABLET PO SCH (08:53)
[2019-05-25] MEDS: LISINOPRIL 20 MG TABLET PO SCH (08:53)
[2019-05-25] MEDS: CLOPIDOGREL 75 MG TABLET PO SCH (08:53)
[2019-05-25] MEDS: SODIUM CHLORIDE 0.45% 1,000 ML IV SCH ×2 (08:58→17:23)
[2019-05-25] MEDS ORDERED: fentaNYL 100 MCG/2 ML VIAL ONE (09:08)
[2019-05-25] MEDS ORDERED: MIDAZOLAM 2 MG/2 ML VIAL ONE ×2 (09:08→09:38)
[2019-05-25] MEDS ORDERED: ENOXAPARIN 60 MG/0.6 ML SYRINGE ONE (09:28)
[2019-05-25] MEDS ORDERED: TIROFIBAN 5,000 MCG/100 ML PREMIX IV ONE (09:30)
[2019-05-25] MEDS ORDERED: TIROFIBAN 5,000 MCG/100 ML PREMIX IV SCH (09:41)
[2019-05-25] MEDS ORDERED: HYDROmorphone 2 MG/1 ML VIAL ONE (09:56)
[2019-05-25] MEDS ORDERED: CLOPIDOGREL 300 MG TABLET ONE (10:14)
[2019-05-25] MEDS: NITROGLYCERIN 2% OINT 1 INCH/GM PACK TOP SCH ×4 (11:09→23:01)
[2019-05-25] MEDS: ENOXAPARIN 100 MG/ML SYRINGE SUBCUT SCH ×3 (11:10→23:00)
[2019-05-25] MEDS ORDERED: diphenhydrAMINE CAP 25 MG CAPSULE PO PRN (13:30)
[2019-05-25] MEDS ORDERED: ALPRAZolam 0.25 MG TABLET PO PRN (13:30)
[2019-05-26 04:58] LABS: Basophils # 0.1 10*3/uL (0.0-0.2); Basophils % 0.9 % (0.0-0.8); Eosinophils # 0.2 10*3/uL (0.0-0.87); Eosinophils % 3.4 % (0.00-10.9); Hematocrit 41.2 VOL% (42.0-52.0); Hemoglobin 13.6 GM/DL (14.0-18.0); Immature Granulocytes % 0.6 %; Immature Granulocytes Absolute 0.04 #; Lymphocytes # 1.9 10*3/uL (1.4-4.0); Lymphocytes % 29.4 % (21.2-54.2); Mean Corpuscular Volume 92.8 FL (87-102); Mean Platelet Volume 11.1 FL (9.6-12.0); Monocytes % 9.8 % (1.7-12.7); Neutrophils % 55.9 % (38.7-73.9); Platelet Count 270 T/CUMM (130-400); Red Blood Count 4.44 MC/CUMM (3.8-5.5); Red Cell Distribution Width 12.3 % (9.3-17.3); White Blood Count 6.4 T/CUMM (4-12)
[2019-05-26] MEDS: NITROGLYCERIN 2% OINT 1 INCH/GM PACK TOP SCH (05:30)
[2019-05-26 05:36] LABS: Calcium 8.7 MG/DL (8.5-10.1); Osmolality,Calculated 283.4 MOS/KG (273-304)
[2019-05-26] MEDS: hydroCHLOROthiazide 25 MG TABLET PO SCH (09:08)
[2019-05-26] MEDS: PANTOPRAZOLE 40 MG TABLET PO SCH (09:08)
[2019-05-26] MEDS: CARVEDILOL 25 MG TABLET PO SCH (09:08)
[2019-05-26] MEDS: ROSUVASTATIN 20 MG TABLET PO SCH (09:09)
[2019-05-26] MEDS: ASPIRIN EC 81 MG TABLET PO SCH (09:09)
[2019-05-26] MEDS: LISINOPRIL 20 MG TABLET PO SCH (09:09)
[2019-05-26] MEDS: CLOPIDOGREL 75 MG TABLET PO SCH (09:10)
[2019-05-26 11:50] VITALS: BP 110/74
[2019-05-26] MEDS: ENOXAPARIN 100 MG/ML SYRINGE SUBCUT SCH (13:29)
== END 2019-05-26 14:42 | disposition home or self-care (01) | DRG 247 ==
LOC: EDBD → EDUNIT# → N.EDINP 20:39 → N.ED 20:39 → N.TELEN 05-25 04:07
PROVIDERS: ADMIT Internal Medicine; ATTEND Internal Medicine
PROC: CLCCHCL (ICD-10-PCS; 2019-05-25 10:15)

== ENCOUNTER 2020-05-12 18:08 | Observation (INO) ==
[2020-05-12] MEDS ORDERED: ASPIRIN 325 MG TABLET PO STA (18:42)
[2020-05-12 19:16] LABS: Alanine Aminotransferase 33 U/L (16-61); Albumin 3.3 G/DL (3.4-5.0); Alkaline Phosphatase 116 U/L (45-117); Aspartate Amino Transferase 19 U/L (0-37); Bilirubin,Total < 0.39 MG/DL (0.2-1.0); Blood Urea Nitrogen 16 MG/DL (7-18); Calcium 9.9 MG/DL (8.5-10.1); Estimated Glom Filtration Rate 115 ML/MIN; Glucose 97 MG/DL (74-106); Osmolality,Calculated 283.1 MOS/KG (273-304)
[2020-05-12] MEDS ORDERED: NITROGLYCERIN 2% OINT 1 INCH/GM PACK TOP STA (19:45)
[2020-05-12] MEDS ORDERED: MAGNESIUM SULF RIDER 2 GM in PREMIX 1 EACH IV PRN (19:46)
[2020-05-12] MEDS ORDERED: MAGNESIUM SULF RIDER 4 GM in PREMIX 1 EACH IV PRN (19:46)
[2020-05-12] MEDS ORDERED: NITROGLYCERIN SL 0.4 MG TABLET SL PRN (19:49)
[2020-05-12] MEDS ORDERED: ENOXAPARIN 100 MG/ML SYRINGE SUBCUT STA (19:51)
[2020-05-12] MEDS ORDERED: CLOPIDOGREL 75 MG TABLET PO STA (19:52)
[2020-05-12 20:10] LABS: Basophils % 0.7 % (0.0-0.8); Eosinophils # 0.2 10*3/uL (0.0-0.87); Eosinophils % 2.5 % (0.00-10.9); Hematocrit 45.6 VOL% (42.0-52.0); Immature Granulocytes % 0.5 %; Immature Granulocytes Absolute 0.03 #; Lymphocytes # 2.7 10*3/uL (1.4-4.0); Lymphocytes % 44.3 % (21.2-54.2); Mean Corpuscular HGB Conc 32.9 GM/DL (32-36); Mean Corpuscular Volume 93.6 FL (87-102); Mean Platelet Volume 11.3 FL (9.6-12.0); Monocytes % 11.6 % (1.7-12.7); Neutrophils % 40.4 % (38.7-73.9); Platelet Count 259 T/CUMM (130-400); Red Blood Count 4.87 MC/CUMM (3.8-5.5); Red Cell Distribution Width 12.5 % (9.3-17.3); White Blood Count 6.1 T/CUMM (4-12)
[2020-05-12] MEDS: carvediloL 25 MG TABLET PO SCH (21:24)
[2020-05-12] MEDS: ROSUVASTATIN 20 MG TABLET PO SCH (21:24)
[2020-05-13] MEDS ORDERED: ALBUTEROL 2.5 MG/3 ML NEB RESP TX PRN (01:00)
[2020-05-13] MEDS: PANTOPRAZOLE 40 MG TABLET PO SCH ×2 (08:36→21:19)
[2020-05-13] MEDS: hydroCHLOROthiazide 25 MG TABLET PO SCH (08:36)
[2020-05-13] MEDS: lisinopriL 20 MG TABLET PO SCH (08:36)
[2020-05-13] MEDS: ASPIRIN EC 81 MG TABLET PO SCH (08:36)
[2020-05-13] MEDS: CLOPIDOGREL 75 MG TABLET PO SCH (08:36)
[2020-05-13] MEDS: carvediloL 25 MG TABLET PO SCH ×2 (08:36→16:45)
[2020-05-13] MEDS: NICOTINE 21 MG/24 HR PATCH TRANSDERM SCH (13:42)
[2020-05-13] MEDS ORDERED: KETOROLAC 30 MG/1 ML VIAL IV ONE (18:12)
[2020-05-13] MEDS ORDERED: ACETAMINOPHEN 325 MG TABLET PO PRN (18:12)
[2020-05-13] MEDS ORDERED: ZALEPLON 5 MG CAPSULE PO PRN (20:53)
[2020-05-13] MEDS: ROSUVASTATIN 20 MG TABLET PO SCH (21:19)
[2020-05-14 08:31] VITALS: BP 136/91
[2020-05-14] MEDS: ASPIRIN EC 81 MG TABLET PO SCH (09:46)
[2020-05-14] MEDS: PANTOPRAZOLE 40 MG TABLET PO SCH (09:46)
[2020-05-14] MEDS: hydroCHLOROthiazide 25 MG TABLET PO SCH (09:46)
[2020-05-14] MEDS: CLOPIDOGREL 75 MG TABLET PO SCH (09:46)
[2020-05-14] MEDS: lisinopriL 20 MG TABLET PO SCH (09:47)
[2020-05-14] MEDS: carvediloL 25 MG TABLET PO SCH (09:47)
[2020-05-14] MEDS: NICOTINE 21 MG/24 HR PATCH TRANSDERM SCH (09:47)
== END 2020-05-14 10:45 | disposition home or self-care (01) ==
LOC: N.EDINP 18:08 → N.ED 18:08 → N.TELES 20:33
PROVIDERS: ADMIT Internal Medicine Cardiovascular Disease; ATTEND Internal Medicine Cardiovascular Disease

== ENCOUNTER 2021-04-18 12:32 | Observation (INO) ==
[2021-04-18] MEDS ORDERED: METOPROLOL TARTRATE 5 MG/5 ML VIAL IV STA (14:22)
[2021-04-18] MEDS ORDERED: ASPIRIN 325 MG TABLET PO STA (14:22)
[2021-04-18] MEDS ORDERED: NITROGLYCERIN 2% OINT 1 INCH/GM PACK TOP STA (14:22)
[2021-04-18] MEDS ORDERED: ENOXAPARIN 100 MG/ML SYRINGE SUBCUT STA (14:22)
[2021-04-18] MEDS ORDERED: MORPHINE 10 MG/1 ML VIAL IV STA (14:27)
[2021-04-18] MEDS ORDERED: ONDANSETRON 4 MG/2 ML VIAL IV STA (14:27)
[2021-04-18] MEDS ORDERED: MORPHINE 2 MG/1 ML SYRINGE IV STA (14:28)
[2021-04-18 14:47] LABS: Basophils # 0.1 10*3/uL (0.0-0.2); Basophils % 0.6 % (0.0-0.8); Eosinophils # 0.1 10*3/uL (0.0-0.87); Eosinophils % 1.1 % (0.00-10.9); Hematocrit 43.5 VOL% (42.0-52.0); Hemoglobin 14.1 GM/DL (14.0-18.0); Immature Granulocytes % 0.5 %; Immature Granulocytes Absolute 0.05 #; Lymphocytes # 2.1 10*3/uL (1.4-4.0); Lymphocytes % 20.2 % (21.2-54.2); Mean Corpuscular HGB Conc 32.4 GM/DL (32-36); Mean Platelet Volume 10.5 FL (9.6-12.0); Monocytes % 8.4 % (1.7-12.7); Neutrophils % 69.2 % (38.7-73.9); Platelet Count 319 T/CUMM (130-400); Red Blood Count 4.63 MC/CUMM (3.8-5.5); White Blood Count 10.4 T/CUMM (4-12)
[2021-04-18 14:56] LABS: Albumin 3.2 G/DL (3.4-5.0); Bilirubin,Total 0.6 MG/DL (0.20-1.00); Calcium 8.6 MG/DL (8.5-10.1); Osmolality,Calculated 280.5 MOS/KG (273-304); Potassium 5.3 MMOL/L (3.5-5.1); Total Protein 7.6 G/DL (6.4-8.2)
[2021-04-18] MEDS ORDERED: hydrALAZINE 20 MG/1 ML VIAL IV PRN (19:49)
[2021-04-18] MEDS ORDERED: MORPHINE 2 MG/1 ML SYRINGE IV PRN (19:49)
[2021-04-18] MEDS ORDERED: diphenhydrAMINE CAP 25 MG CAPSULE PO PRN (19:49)
[2021-04-18] MEDS ORDERED: guaiFENesin/DM ER 600-30 MG TABLET PO PRN (19:49)
[2021-04-18] MEDS ORDERED: NITROGLYCERIN SL 0.4 MG TABLET SL PRN (19:49)
[2021-04-18] MEDS ORDERED: MAGNESIUM SULF RIDER 2 GM/50 ML PREMIX IV PRN (19:49)
[2021-04-18] MEDS ORDERED: SIMETHICONE CHEW 125 MG TABLET PO PRN (19:49)
[2021-04-18] MEDS ORDERED: POTASSIUM CHLORIDE 20 MEQ TABLET PO PRN (19:49)
[2021-04-18] MEDS ORDERED: LACTULOSE 20 GM/30 ML UDCUP PO PRN (19:49)
[2021-04-18] MEDS ORDERED: MAGNESIUM SULF RIDER 4 GM/100 ML PREMIX IV PRN (19:49)
[2021-04-18] MEDS ORDERED: ONDANSETRON 4 MG/2 ML VIAL IV PRN (19:49)
[2021-04-18] MEDS ORDERED: ACETAMINOPHEN 325 MG TABLET PO PRN (19:49)
[2021-04-18] MEDS ORDERED: ALUMINUM/MAGNES/SIMETH MAX STR 30 ML UDCUP PO PRN (19:49)
[2021-04-18] MEDS ORDERED: BISACODYL 5 MG TABLET PO PRN (19:49)
[2021-04-18] MEDS ORDERED: CALCIUM CARBONATE CHEW 500 MG TABLET PO PRN (19:49)
[2021-04-18] MEDS: ENOXAPARIN 40 MG/0.4 ML SYRINGE SUBCUT SCH (20:32)
[2021-04-18] MEDS: carvediloL 25 MG TABLET PO SCH (20:34)
[2021-04-18] MEDS: ROSUVASTATIN 20 MG TABLET PO SCH (20:34)
[2021-04-18] MEDS: SODIUM CHLORIDE 0.9% 1,000 ML IV SCH (20:34)
[2021-04-18] MEDS: ZALEPLON 5 MG CAPSULE PO PRN (20:35)
[2021-04-19 02:26] LABS: Basophils # 0.1 10*3/uL (0.0-0.2); Basophils % 0.7 % (0.0-0.8); Eosinophils # 0.2 10*3/uL (0.0-0.87); Eosinophils % 2.8 % (0.00-10.9); Hematocrit 39.8 VOL% (42.0-52.0); Hemoglobin 13.1 GM/DL (14.0-18.0); Immature Granulocytes % 0.5 %; Immature Granulocytes Absolute 0.04 #; Lymphocytes # 3.6 10*3/uL (1.4-4.0); Lymphocytes % 41.5 % (21.2-54.2); Mean Corpuscular HGB Conc 32.9 GM/DL (32-36); Mean Corpuscular Volume 94.5 FL (87-102); Monocytes % 7.4 % (1.7-12.7); Neutrophils % 47.1 % (38.7-73.9); Platelet Count 245 T/CUMM (130-400); Red Blood Count 4.21 MC/CUMM (3.8-5.5); Red Cell Distribution Width 11.9 % (9.3-17.3); White Blood Count 8.6 T/CUMM (4-12)
[2021-04-19 02:48] LABS: Calcium 7.9 MG/DL (8.5-10.1); Osmolality,Calculated 276.8 MOS/KG (273-304); Potassium 5.1 MMOL/L (3.5-5.1)
[2021-04-19 02:51] LABS: Risk Ratio 13.1; VLDL Cholesterol 188.6 MG/DL
[2021-04-19] MEDS: SODIUM CHLORIDE 0.9% 1,000 ML IV SCH ×2 (04:40→10:57)
[2021-04-19] MEDS ORDERED: DIAZEPAM 5 MG TABLET PO ONE (07:34)
[2021-04-19] MEDS ORDERED: diphenhydrAMINE CAP 25 MG CAPSULE PO ONE (07:34)
[2021-04-19] MEDS ORDERED: LIDOCAINE 1%/EPI INJ 20 ML VIAL ONE (08:47)
[2021-04-19] MEDS ORDERED: HEPARIN/NACL 0.9% 2 UNITS/ML 0 UNIT/0 ML BAG IV ONE (08:47)
[2021-04-19] MEDS: carvediloL 25 MG TABLET PO SCH ×2 (08:59→16:58)
[2021-04-19] MEDS: ISOSORBIDE MONONITRATE 30 MG TABLET PO SCH (08:59)
[2021-04-19] MEDS: lisinopriL 20 MG TABLET PO SCH ×2 (08:59→20:54)
[2021-04-19] MEDS: PANTOPRAZOLE 40 MG TABLET PO SCH (08:59)
[2021-04-19] MEDS: amLODIPine 5 MG TABLET PO SCH (08:59)
[2021-04-19] MEDS: CLOPIDOGREL 75 MG TABLET PO SCH (08:59)
[2021-04-19] MEDS: ASPIRIN EC 81 MG TABLET PO SCH (08:59)
[2021-04-19] MEDS ORDERED: lisinopriL 20 MG TABLET PO SCH (09:00)
[2021-04-19] MEDS ORDERED: amLODIPine 5 MG TABLET PO SCH (09:00)
[2021-04-19] MEDS ORDERED: LIDOCAINE 1% 20 ML VIAL ONE (14:00)
[2021-04-19] MEDS ORDERED: HYDROmorphone 2 MG/1 ML VIAL ONE ×2 (14:02→15:33)
[2021-04-19] MEDS ORDERED: MIDAZOLAM 2 MG/2 ML VIAL ONE (14:02)
[2021-04-19] MEDS ORDERED: ENOXAPARIN 60 MG/0.6 ML SYRINGE ONE (14:23)
[2021-04-19] MEDS ORDERED: ENOXAPARIN 30 MG/0.3 ML SYRINGE ONE (15:21)
[2021-04-19] MEDS ORDERED: NITROGLYCERIN SL 0.4 MG TABLET SL ONE (15:23)
[2021-04-19] MEDS ORDERED: CLOPIDOGREL 300 MG TABLET ONE (15:37)
[2021-04-19] MEDS: ENOXAPARIN 40 MG/0.4 ML SYRINGE SUBCUT SCH (20:53)
[2021-04-19] MEDS: ROSUVASTATIN 20 MG TABLET PO SCH (20:54)
[2021-04-19] MEDS: ZALEPLON 5 MG CAPSULE PO PRN (21:51)
[2021-04-20 04:54] LABS: Basophils # 0.1 10*3/uL (0.0-0.2); Basophils % 0.6 % (0.0-0.8); Eosinophils # 0.3 10*3/uL (0.0-0.87); Eosinophils % 3.2 % (0.00-10.9); Hematocrit 37.3 VOL% (42.0-52.0); Hemoglobin 12.2 GM/DL (14.0-18.0); Immature Granulocytes % 0.5 %; Immature Granulocytes Absolute 0.04 #; Lymphocytes # 2.5 10*3/uL (1.4-4.0); Lymphocytes % 29.4 % (21.2-54.2); Mean Corpuscular HGB Conc 32.7 GM/DL (32-36); Mean Corpuscular Volume 94.9 FL (87-102); Mean Platelet Volume 10.8 FL (9.6-12.0); Monocytes % 9.1 % (1.7-12.7); Neutrophils % 57.2 % (38.7-73.9); Platelet Count 267 T/CUMM (130-400); Red Blood Count 3.93 MC/CUMM (3.8-5.5); Red Cell Distribution Width 11.9 % (9.3-17.3); White Blood Count 8.5 T/CUMM (4-12)
[2021-04-20 05:34] LABS: Blood Urea Nitrogen 16 MG/DL (7-18); Carbon Dioxide 24 MMOL/L (21-32); Estimated Glom Filtration Rate 114 ML/MIN; Glucose 119 MG/DL (74-106); Osmolality,Calculated 278.5 MOS/KG (273-304); Sodium 139 MMOL/L (136-145)
[2021-04-20 05:40] LABS: Calcium 8.1 MG/DL (8.5-10.1)
[2021-04-20 09:22] VITALS: BP 131/76
[2021-04-20] MEDS: lisinopriL 20 MG TABLET PO SCH (10:15)
[2021-04-20] MEDS: ISOSORBIDE MONONITRATE 30 MG TABLET PO SCH (10:16)
[2021-04-20] MEDS: carvediloL 25 MG TABLET PO SCH (10:16)
[2021-04-20] MEDS: amLODIPine 5 MG TABLET PO SCH (10:16)
[2021-04-20] MEDS: PANTOPRAZOLE 40 MG TABLET PO SCH (10:16)
[2021-04-20] MEDS: ASPIRIN EC 81 MG TABLET PO SCH (10:16)
[2021-04-20] MEDS: CLOPIDOGREL 75 MG TABLET PO SCH (10:17)
== END 2021-04-20 12:12 | disposition home or self-care (01) ==
LOC: N.ED 12:32 → N.EDINP 12:32 → N.TELES 18:32
PROVIDERS: ADMIT Internal Medicine Interventional Cardiology; ATTEND Internal Medicine Interventional Cardiology